=== PATIENT | female | born 1940 | race Caucasian/White ===

== ENCOUNTER → 2016-05-07 | Outpatient (CLI) | payer OTHER ==
[~2016-05-07] VITALS: Ht 160 cm; Wt 49.9 kg
[~2016-05-07] MED LIST: ADENOSINE 42 MG in GIVE UN-DILUTED 0 ML IV ONE; AMIT25TA9 PO; CARV25TA PO; ENAL5TAB92 PO
== END | disposition home or self-care (01) ==
LOC: XY 08:17
PROVIDERS: ATTEND Internal Medicine Cardiovascular Disease
DX: I34.2 Nonrheumatic mitral (valve) stenosis (principal); I35.0 Nonrheumatic aortic (valve) stenosis; I31.3 Pericardial effusion (noninflammatory); I37.1 Nonrheumatic pulmonary valve insufficiency; I35.1 Nonrheumatic aortic (valve) insufficiency
CPT/HCPCS: 78452; 93017; 93306; A9500; J0153

== ENCOUNTER 2016-07-14 06:09 | Emergency (ER) | payer OTHER ==
[~2016-07-14] VITALS: Ht 160 cm; Wt 54.4 kg
[~2016-07-14 06:09] MED LIST changes: -ADENOSINE 42 MG in GIVE UN-DILUTED 0 ML IV ONE
[2016-07-14] MEDS ORDERED: SODIUM CHLORIDE 0.9% 250 ML IV ONE (07:04)
[2016-07-14] MEDS ORDERED: KETOROLAC TROMETH 30 MG/ML 1ML VIAL IV ONE (07:15)
[2016-07-14] MEDS ORDERED: METOCLOPRAMIDE HCL 5MG/ml INJ 2ml VIAL IV ONE (07:15)
[2016-07-14 07:32] LABS: Basophils # (auto) 0 uL; Basophils % (auto) 0.5 % (0.0-2.0); Eosinophils # (auto) 0.1 uL; Eosinophils % (auto) 0.6 % (0.0-7.0); Hematocrit 38.6 % (36.0-46.0); Hemoglobin 12.6 g/dL (12.2-16.2); Lymphocytes # (auto) 0.9 uL; Lymphocytes % (auto) 10.6 % (10.0-50.0); Mean Corpuscular Hemoglobin 28.8 pg (28.0-32.0); Mean Corpuscular Hgb Conc. 32.5 g/dL (32.0-36.0); Mean Corpuscular Volume 88.6 fL (80.0-100.0); Mean Platelet Volume 6.8 fL (7.4-10.4); Monocytes # (auto) 0.4 uL; Monocytes % (auto) 4.9 % (0.0-12.0); Neutrophils # (auto) 7.2 uL; Neutrophils % (auto) 83.4 % (37.0-80.0); Platelet Count (auto) 306 10^3/uL (140-450); Red Cell Distribution Width 13.6 % (11.6-16.0); White Blood Cell 8.6 10^3/uL (4.4-10.8)
[2016-07-14 08:15] LABS: BUN/Creatinine Ratio 20.9; Calcium 8.9 mg/dL (8.5-10.1); Magnesium 2.4 mg/dL (1.6-2.6); Potassium 4.3 mmol/L (3.5-5.1)
[2016-07-14 08:22] LABS: Urine Bilirubin Negative (Negative); Urine Blood Negative /uL (Negative); Urine Color Yellow (Yellow); Urine Glucose Normal (Normal); Urine Ketone Negative (Negative); Urine Nitrite Negative (Negative); Urine RBC <1 /hpf (0 - 4); Urine Urobilinogen Normal (Negative)
[2016-07-14 08:36] VITALS: BP 130/73
== END 2016-07-14 09:57 | disposition home or self-care (01) ==
LOC: ER 06:10
DX: M17.11 Unilateral primary osteoarthritis, right knee (principal); I11.0 Hypertensive heart disease with heart failure; I50.9 Heart failure, unspecified; Z79.899 Other long term (current) drug therapy; Z88.8 Allergy status to other drugs, medicaments and biological substances
CPT/HCPCS: 36415; 73562; 80048; 81001; 83735; 85025; 96374; 96375; 99285; J1885; J2765; J7030